=== PATIENT | female | born 2005 | race Caucasian/White ===

== ENCOUNTER 2025-04-12 15:19 | Outpatient (CLI) | payer SELFPAY ==
--- OUTSIDE RECORDS SUMMARY | 2025-04-13 14:25 | XMS_ITS | Clinical Summary ---
[facility] Address [address] [place] [address] Care Team Providers Care Maintenance Journeyman Name Role Phone Unavailable Primary Care Provider Unavailabl e Allergies No known active allergies Medications acetaminophen (TYLENOL) 500 MG tablet Take 500 mg by mouth every 6 (six) hours as needed for Pain Active Active Problems No known active problems Social History Tobacco Use Types Packs/Day Years Used Date Smoking Tobacco: Never Passive Smoke Exposure: Never Smokeless Tobacco: Never Tobacco Cessation:Counseling Given: Yes Alcohol Use Standard Drinks/Week Comments Not Currently 0 (1 standard drink = 0.6 oz pur e alcohol) Comments No Sex and Gender Information Value Date Recorded Sex Assigned at Not on file Legal Sex Female 12:32 PM CDT Gender Identity Not on file Sexual Orientation Not on file Last Filed Vital Signs Vital Sign Reading Time Taken Comments Blood Pressure 105/68 09/07/2022 10:58 AM CDT Pulse 95 09/07/2022 10:58 AM CDT Temperature 37.9 C (100.3 F) 09/07/2022 10:58 AM CDT Respiratory Rate 19 09/07/2022 10:58 AM CDT Oxygen Saturation 98% 09/07/2022 10:58 AM CDT Inhaled Oxygen Concentration - - Weight 70.9 kg (156 lb 3.2 oz) 09/07/2022 10:58 AM CDT Height 170.2 cm (5' 7 ) 09/07/2022 10:58 AM CDT Body Mass Index 24.46 09/07/2022 10:58 AM CDT Plan of Treatment Health Maintenance Due Date Last Done Comments DEPRESSION SCREENING 2003 HEPATITIS C SCREENING 2003 SCREENING AFTER 30 YRS AND H PV NEGATIVE 2003 DTAP/TDAP/TD VACCINES (1 - Tdap) 2010 HIV SCREENING 15-65 2018 HPV VACCINES (1 - 3-dose series) 2018 CERVICAL CANCER SCREENING 2024 PAP SMEAR 2024 INFLUENZA VACCINE 9 YRS THRU 64 YRS 01/23/2025 COVID-19 Vaccine (1 - 2024-2 6 season) 2025 CHLAMYDIA SCREENING Discontinued 09/07/2022 MENINGOCOCCAL CONJUGATE VACCINE Aged Out No longer eligible based on patient's age to complete this topic Pneumococcal Vaccine: 0-49 Years Aged Out No longer eligible based on patient's age to complete this topic Procedures Procedure Name Priority Date/Time Associated Diagnosis Comments CHLAMYDIA TRACHOMATIS / NEISSERIA GONORRHOEAE PCR Routine 09/07/2022 3:03 PM CDT Fever and chills Acute cystitis with hematuria from Last 3 Months or Most Recently Relevant to Health Maintenance Results * C. trachomatis/N. gonorrhoeae, PCR (09/07/2022 3:03 PM CDT) CT/NG Source Urine 09/08/2022 11:19 AM CDT [facility] C. trachomatis, PCR INVALID Not Detected 09/08/2022 11:19 AM CDT [facility] Comment: Grossly Mucoid Specimen: The presence of mucin (>0.2% w/v) may cause assay interference, resulting in an Invalid result. Recollection of specimen is recommended. N. Gonorrhoeae, PCR INVALID Not Detected 09/08/2022 11:19 AM T [facility] Comment: Grossly Mucoid Specimen: The presence of mucin (>0.2% w/v) may cause assay interference, resulting in an Invalid result. Recollection of specimen is recommended. The Xpert CT/NG assay performance has not been evaluated in patients less than 14 years of age. The Xpert CT/NG assay should not be used for the evaluation of suspected sexual abuse or other medico-legal indications. Urine 09/07/2022 3:03 PM CDT 09/07/2022 8:15 PM CDT us Boone Navarro DIGITAL SPECIALIST-C BODY FLUIDS AND STOOLS CARMELITA ALVES Final Result [facility] [address] [place] [address], [facility] [phone] from Last 3 Months or Most Recently Relevant to Health Maintenance
== END 2025-04-12 23:59 | disposition home or self-care (01) ==
LOC: LAB.DROPOF 04-13 14:07
PROVIDERS: PCP Student in an Organized Health Care Education/Training Program; Visit Provider Student in an Organized Health Care Education/Training Program
DX: N39.0 Urinary tract infection, site not specified (principal)
CPT/HCPCS: 87086